=== PATIENT | female | born 1975 | race Caucasian/White ===

== ENCOUNTER 2016-12-14 09:29 | Emergency (ER) | payer BC ==
[2016-12-14 10:07] VITALS: BP 105/74
--- NOTE | 2016-12-14 10:20 | UC ---
Throat Pain/Nasal Bernabe HPI - HPI Summary HPI Summary: sinus pain/pressure with bloody and yellow drainage. URI symptoms for 3 weeks, started to improve and then took a turn for the worse. No fevers. Headaches, body aches. Mild dry cough. Hoarseness - History of Current Complaint Chief Complaint: UCRespiratory Stated Complaint: SINUS COMPLAINT Time Seen by Provider: 12/14/16 10:10 Hx Obtained From: Patient Hx Last Menstrual Period: one week ?: No Onset/Duration: Gradual Onset, Lasting Weeks - 3 Severity: Moderate Cough: Nonproductive Associated Signs & Symptoms: Positive: Hoarseness, Sinus Discomfort, Nasal Discharge. Negative: Dysphagia, Drooling, Wheezing, Fever, Vomiting, Rash Related History: Seasonal Allergies, Smoking - occasional - Epiglottits Risk Factors Epiglottis Risk Factors: Negative - Allergies/Home Medications Allergies/Adverse Reactions: Allergies Allergy/AdvReac Type Severity Reaction Status Date / Time Penicillins Allergy Vomiting Verified 12/14/16 10:08 dairy Allergy GI Upset Uncoded 12/14/16 10:08 wheat Allergy Headache Uncoded 12/14/16 10:08 Home Medications: Home Medications Cholecalciferol [Vitamin D] 2,000 unit PO DAILY 12/14/16 [History Confirmed ] Herbal Cold Remedy 1 dose PO BID PRN 12/14/16 [History Confirmed 12/14/16] Magnesium 500 mg PO SEE INSTRUCTIONS 12/14/16 [History Confirmed 12/14/16] Multivitamins/Minerals TAB* [Thera M Plus TAB*] 1 tab PO DAILY 12/14/16 [ History Confirmed 12/14/16] PMH/Surg Hx/FS Hx/Imm Hx Previously Healthy: Yes - Surgical History Surgical History: None - Family History Known Family History: Positive: Respiratory Disease - no asthma - Social History Lives: With Family Alcohol Use: Occasionally Substance Use Type: None Smoking Status (MU): Current Some Day Smoker Review of Systems Constitutional: Chills, Fatigue Skin: Negative Eyes: Negative ENT: Nasal Discharge Respiratory: Cough Cardiovascular: Negative Gastrointestinal: Negative Genitourinary: Negative Motor: Negative Neurovascular: Negative Musculoskeletal: Negative Neurological: Negative Psychological: Negative All Other Systems Reviewed And Are Negative: Yes Physical Exam Triage Information Reviewed: Yes Appearance: Well-Appearing, No Pain Distress, Well-Nourished Vital Signs: Initial Vital Signs Temp 99.4 F 12/14/16 10:02 Pulse 84 12/14/16 10:02 Resp 18 12/14/16 10:02 BP 105/74 12/14/16 10:02 Pulse Ox 99 12/14/16 10:02 Vital Signs Reviewed: Yes Eye Exam: Normal ENT: Positive: Hearing grossly normal, Pharynx normal, Nasal congestion, Nasal drainage, TMs normal, Muffled/hoarse voice - hoarse. Negative: Tonsillar swelling, Tonsillar exudate, Trismus Neck exam: Normal Respiratory Exam: Normal Cardiovascular Exam: Normal Musculoskeletal Exam: Normal Neurological Exam: Normal Psychological Exam: Normal Skin Exam: Normal Throat Pain/Nasal Course/Dx - Differential Dx/Diagnosis Differential Diagnosis/HQI/PQRI: Pharyngitis, Sinusitis, URI Provider Diagnoses: sinusitis Discharge - Discharge Plan Condition: Stable Disposition: HOME Prescriptions: Sulfamethox/Trimethoprim DS* [Bactrim DS 800/160 TAB*] 1 tab PO BID #20 tab Patient Education Materials: Sinusitis (ED) Referrals: Bernardino Martin MD [Primary Care Provider] -
== END 2016-12-14 10:25 | disposition home or self-care (01) ==
LOC: UCCORT 09:29
DX: J32.9 Chronic sinusitis, unspecified (principal); Z88.1 Allergy status to other antibiotic agents; Z72.0 Tobacco use
CPT/HCPCS: 99212; G0463

== ENCOUNTER 2017-03-05 18:01 | Emergency (ER) | payer BC ==
[2017-03-05 19:51] VITALS: BP 104/48
--- NOTE | 2017-03-05 20:07 | UC ---
Ear Complaint HPI - HPI Summary HPI Summary: 41 YO FEMALE WITH ONSET OF LEFT OTALGIA AND DECREASED HEARING AFTER USING A Q TIP THIS AM HX OF CERUMEN IMPACTION NO URI - History of Current Complaint Chief Complaint: UCEar Stated Complaint: LEFT EAR ISSUE Time Seen by Provider: 03/05/17 19:58 Hx Obtained From: Patient Hx Last Menstrual Period: 02/21/17 ?: Yes Onset/Duration: Sudden Onset, Lasting Hours Severity Initially: Mild Severity Currently: Mild Pain Intensity: 4 Pain Scale Used: 0-10 Numeric Aggravating Factors: Nothing Alleviating Factors: Nothing Associated Signs/Symptoms: Positive: Hearing Loss - Allergies/Home Medications Allergies/Adverse Reactions: Allergies Allergy/AdvReac Type Severity Reaction Status Date / Time Gluten Meal Allergy Vomiting Verified 03/05/17 19:51 Penicillins Allergy Vomiting Verified 12/14/16 10:08 dairy Allergy GI Upset Uncoded 12/14/16 10:08 wheat Allergy Headache Uncoded 12/14/16 10:08 PMH/Surg Hx/FS Hx/Imm Hx Previously Healthy: Yes - Surgical History Surgical History: Yes Surgery Procedure, Year, and Place: ovarian hernia as - Family History Known Family History: Positive: Hypertension, Respiratory Disease - no asthma - Social History Alcohol Use: Occasionally Substance Use Type: None Smoking Status (MU): Current Some Day Smoker Review of Systems Constitutional: Negative Skin: Negative Eyes: Negative ENT: Ear Ache Respiratory: Negative Cardiovascular: Negative Gastrointestinal: Negative Genitourinary: Negative Motor: Negative Neurovascular: Negative Musculoskeletal: Negative Neurological: Negative Psychological: Negative All Other Systems Reviewed And Are Negative: Yes Physical Exam Triage Information Reviewed: Yes Appearance: Well-Appearing, No Pain Distress, Well-Nourished Vital Signs: Initial Vital Signs Temp 99 F 03/05/17 19:45 Pulse 84 03/05/17 19:45 Resp 18 03/05/17 19:45 BP 104/48 03/05/17 19:45 Vital Signs Reviewed: Yes Eyes: Positive: Conjunctiva Clear ENT: Positive: TMs normal - RIGHT/UNABLE TO SEE LEFT DUE TO CERUMEN Neck exam: Normal Neck: Positive: Supple, Nontender Respiratory: Positive: Lungs clear, Normal breath sounds, No respiratory distress Cardiovascular: Positive: RRR, No Murmur Musculoskeletal: Positive: Strength Intact, ROM Intact Neurological Exam: Normal Neurological: Positive: Alert Psychological Exam: Normal Skin Exam: Normal Ear Complaint Course/Dx - Course Course Of Treatment: AFTER FLUSH LEFT TM NORMAL. HEARING BACK TO NORMAL - Differential Dx/Diagnosis Provider Diagnoses: LEFT CERUMEN IMPACTION Discharge - Discharge Plan Condition: Stable Disposition: HOME Patient Education Materials: Cerumen Impaction (ED) Referrals: Bernardino Martin MD [Primary Care Provider] - If Needed Additional Instructions: CALL FOR ANY QUESTIONS RETURN FOR ANY PROBLEMS
== END 2017-03-05 20:27 | disposition home or self-care (01) ==
LOC: UCCORT 18:01
DX: H61.22 Impacted cerumen, left ear (principal); Z88.0 Allergy status to penicillin; Z72.0 Tobacco use
CPT/HCPCS: 99212; G0463

== ENCOUNTER 2017-05-15 15:45 | Emergency (ER) | payer BC ==
[2017-05-15 17:46] VITALS: BP 117/54
--- NOTE | 2017-05-15 18:15 | UC ---
UC General HPI - HPI Summary HPI Summary: complaint of findin a rash on her abdomen on it has been spreading and last night her ankle felt sore tendr and weak and legs felt heavy and fatigued woke up this morning with headache and feels lethargic denies fever and chills - History of Current Complaint Chief Complaint: UCGeneralIllness Stated Complaint: SKIN COMPLAINT,HEADACHE,TIRED ,HEAVY LEGS Time Seen by Provider: 05/15/17 17:59 Hx Obtained From: Patient - Allergy/Home Medications Allergies/Adverse Reactions: Allergies Allergy/AdvReac Type Severity Reaction Status Date / Time Gluten Meal Allergy Vomiting Verified 05/15/17 17:46 Penicillins Allergy Vomiting Verified 05/15/17 17:46 dairy Allergy GI Upset Uncoded 05/15/17 17:46 wheat Allergy Headache Uncoded 05/15/17 17:46 Home Medications: Home Medications [id number] [Excedrin Migraine] 1 tab PO DAILY 05/15/17 [ History Confirmed 05/15/17] PMH/Surg Hx/FS Hx/Imm Hx Previously Healthy: No - celiac - Surgical History Surgical History: Yes Surgery Procedure, Year, and Place: ovarian hernia as infant - Family History Known Family History: Positive: Hypertension, Respiratory Disease - no asthma - Social History Occupation: Employed Full-time Lives: With Family Alcohol Use: Occasionally Substance Use Type: None Smoking Status (MU): Current Some Day Smoker Review of Systems Constitutional: Negative Skin: Rash Eyes: Negative ENT: Negative Respiratory: Negative Cardiovascular: Negative Gastrointestinal: Negative Genitourinary: Negative Motor: Negative Neurovascular: Negative Musculoskeletal: Negative Neurological: Negative Psychological: Negative All Other Systems Reviewed And Are Negative: Yes Physical Exam Triage Information Reviewed: Yes Appearance: No Pain Distress, Well-Nourished Vital Signs: Initial Vital Signs Temp 99.4 F 05/15/17 17:41 Pulse 84 05/15/17 17:41 Resp 16 05/15/17 17:41 BP 117/54 05/15/17 17:41 Pulse Ox 99 05/15/17 17:41 Vital Signs Reviewed: Yes Eyes: Positive: Conjunctiva Clear ENT: Positive: Pharynx normal, TMs normal Neck: Positive: No Lymphadenopathy Respiratory: Positive: Lungs clear, Normal breath sounds, No respiratory distress, No accessory muscle use Cardiovascular: Positive: RRR, No Murmur, Pulses Normal Abdomen Description: Positive: Nontender, Soft Bowel Sounds: Positive: Present Musculoskeletal: Positive: No Edema Neurological: Positive: Alert, Other: - no neuro defecits Psychological Exam: Normal Skin: Positive: rashes, Other - right side of trunk with raised papule surrounded by 6mm area of erythema Course/Dx - Course Course Of Treatment: exam completed. appears to have insect bite most likely tick bite. will prescribe prophylactic dose of doxycycline and she will followup with Dr aMrtin as needed for fatigue and leg heaviness - Differential Dx - Multi-Symptom Provider Diagnoses: tick bite Discharge - Discharge Plan Condition: Stable Disposition: HOME Prescriptions: DOXYcycline CAP(*) [DOXYcycline 100MG CAP(*)] 100 mg PO DAILY #2 cap Patient Education Materials: Tick Bite (ED) Referrals: Bernardino Martin MD [Primary Care Provider] - Additional Instructions: Please start antibiotic as directed Increase fluids and rest Take acetaminophen or ibuprofen for fever or pain Please review your discharge instructions. If your symptoms do not improve please call your primary care provider or return to urgent care.
== END 2017-05-15 18:29 | disposition home or self-care (01) ==
LOC: UCCORT 15:45
DX: S30.861A Insect bite (nonvenomous) of abdominal wall, initial encounter (principal); W57.XXXA Bitten or stung by nonvenomous insect and other nonvenomous arthropods, initial encounter; F17.200 Nicotine dependence, unspecified, uncomplicated; Z88.0 Allergy status to penicillin
CPT/HCPCS: 99212; G0463

== ENCOUNTER 2017-09-25 13:21 | Emergency (ER) | payer BC ==
--- NOTE | 2017-09-25 15:57 | UC ---
Ear Complaint HPI - HPI Summary HPI Summary: patient has had increased pressure and decreased hearing in the left ear - History of Current Complaint Chief Complaint: UCEar Stated Complaint: LF EAR COMPLAINT Time Seen by Provider: 09/25/17 15:20 Hx Obtained From: Patient Hx Last Menstrual Period: 09/14/17 ?: No Onset/Duration: Sudden Onset, Lasting Days Severity Initially: Mild Severity Currently: Moderate Associated Signs/Symptoms: Positive: Hearing Loss - Allergies/Home Medications Allergies/Adverse Reactions: Allergies Allergy/AdvReac Type Severity Reaction Status Date / Time Gluten Meal Allergy Vomiting Verified 09/25/17 15:34 Penicillins Allergy Vomiting Verified 09/25/17 15:34 dairy Allergy GI Upset Uncoded 09/25/17 15:34 wheat Allergy Headache Uncoded 09/25/17 15:34 PMH/Surg Hx/FS Hx/Imm Hx Previously Healthy: Yes - Surgical History Surgical History: Yes Surgery Procedure, Year, and Place: ovarian hernia as infant - Family History Known Family History: Positive: Hypertension, Respiratory Disease - no asthma - Social History Alcohol Use: Occasionally Substance Use Type: None Smoking Status (MU): Current Some Day Smoker Review of Systems Constitutional: Negative Skin: Negative Eyes: Negative ENT: Ear Ache Respiratory: Negative Cardiovascular: Negative Gastrointestinal: Negative Genitourinary: Negative Motor: Negative Neurovascular: Negative Musculoskeletal: Negative Neurological: Negative Psychological: Negative Is Patient Immunocompromised?: No All Other Systems Reviewed And Are Negative: Yes Physical Exam Triage Information Reviewed: Yes Appearance: Well-Appearing, Well-Nourished, Pain Distress Vital Signs: Initial Vital Signs Temp 99.3 F 09/25/17 15:30 Pulse 84 09/25/17 15:30 Resp 16 09/25/17 15:30 BP 108/59 09/25/17 15:30 Pulse Ox 100 09/25/17 15:30 Vital Signs Reviewed: Yes Eye Exam: Normal ENT: Positive: Pharynx normal, TMs normal, Other: - clear fluid noted behind both ears Dental Exam: Normal Neck exam: Normal Neck: Positive: Supple, Nontender, No Lymphadenopathy Respiratory Exam: Normal Respiratory: Positive: Chest non-tender, Lungs clear, Normal breath sounds Cardiovascular Exam: Normal Cardiovascular: Positive: RRR, No Murmur, Pulses Normal Abdominal Exam: Normal Abdomen Description: Positive: Nontender, No Organomegaly, Soft Bowel Sounds: Positive: Present Musculoskeletal Exam: Normal Musculoskeletal: Positive: Strength Intact, ROM Intact, No Edema Neurological Exam: Normal Neurological: Positive: Alert, Muscle Tone Normal Psychological Exam: Normal Skin Exam: Normal Ear Complaint Course/Dx - Course Course Of Treatment: hx obtained, exam performed ,meds reviewed, treated for serous otitis - Differential Dx/Diagnosis Differential Diagnosis/HQI/PQRI: Cellulitis, Cerumen Impaction, Otitis Externa, Otitis Media, Perforated TM Provider Diagnoses: serous otitis, left ear. dizzyness Discharge - Discharge Plan Condition: Stable Disposition: HOME Prescriptions: Meclizine TAB* [Antivert 12.5 TAB*] 12.5 mg PO TID PRN #10 tab PRN Reason: Dizziness predniSONE TAB* [Deltasone TAB*] 40 mg PO DAILY #14 tab Patient Education Materials: Serous Otitis Media (ED) Referrals: Bernardino Martin MD [Primary Care Provider] - Additional Instructions: 1. take the medication as prescribed. 2. After the prednisone start a daily decongestant such as claritin D for facilitation of fluid removal. 3. Follow up with any worsening symptoms.
[2017-09-25 16:01] VITALS: BP 108/59
== END 2017-09-25 16:08 | disposition home or self-care (01) ==
LOC: UCCORT 13:21
DX: H65.92 Unspecified nonsuppurative otitis media, left ear (principal); R42 Dizziness and giddiness; F17.210 Nicotine dependence, cigarettes, uncomplicated; Z88.0 Allergy status to penicillin; Z91.02 Food additives allergy status
CPT/HCPCS: 99212; G0463